=== PATIENT | male | born 2000 | race Hispanic/Latino ===

== ENCOUNTER 2023-11-11 20:51 | Emergency (ER) | payer OTHER ==
[~2023-11-11] VITALS: Ht 175.3 cm; Wt 111.1 kg
[2023-11-11 23:55] VITALS: BP 135/89; TEMP 98; O2SAT 99
== END 2023-11-11 23:56 | disposition home or self-care (01) ==
LOC: M ED 20:51
DX: M23.91 Unspecified internal derangement of right knee (principal); Y92.9 Unspecified place or not applicable; Y93.67 Activity, basketball; Y99.9 Unspecified external cause status